=== PATIENT | male | born 1990 | race Caucasian/White ===

== ENCOUNTER 2017-05-30 08:19 | Observation (INO) | payer SELFPAY ==
[2017-05-30] MEDS ORDERED: Ondansetron 4 MG/2 ML SDV IVPUSH ONE (08:21)
[2017-05-30] MEDS ORDERED: Sodium Chloride 0.9% 1,000 ML IV ONE (08:22)
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
[2017-05-30 09:19] LABS: CHLORIDE,CL 114 mmol/L (98-110); SODIUM,NA 145 mmol/L (136-146)
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
[2017-05-30] MEDS ORDERED: Acetaminophen 325 MG Tab PO PRN (11:14)
[2017-05-30] MEDS ORDERED: Metoclopramide 10 MG/2 ML SDV IV PRN (11:14)
[2017-05-30] MEDS ORDERED: diphenhydrAMINE 50 MG/ML SDV IVPUSH PRN (11:14)
[2017-05-30] MEDS ORDERED: Morphine 2 MG/ML Syringe IVPUSH PRN (11:14)
[2017-05-30] MEDS ORDERED: Acetaminophen/HYDROcodone 325-5 MG Tab PO PRN (11:14)
[2017-05-30] MEDS ORDERED: Ondansetron 4 MG/2 ML SDV IVPUSH PRN (11:14)
[2017-05-30] MEDS ORDERED: Promethazine 25 MG/ML SDV IM PRN (11:14)
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
[2017-05-30] MEDS: Lactated Ringers 1,000 ML IV SCH ×2 (12:12→17:50)
[2017-05-30] MEDS ORDERED: LORazepam 2 MG/ML SDV IVPUSH PRN (12:24)
--- NOTE | 2017-05-30 17:54 | PCM.SN ---
- Free Text/Narrative Note: Patient was awake and alert around 3 pm this afternoon. I came to assess the patient. He was alert and oriented to person, place, time and situation. He is amnestic to the last 24 hours. I attempted to clear his neck clinically but he had midline tenderness along the lower c-spine including the right paraspinal muscles. There were no neurologic changes. In order to assess for ligamentous injury I ordered an MRI of the c-spine. The patient was concerned that he would miss a work physical and drug testing today because he was in the hospital. 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 He threatened to sign out AMA. Per the patient's request, I called the center where he was scheduled to do his physical as well as his potential employer to inform them that he was admitted to the hospital and would not be be able to make the appointment. The patient was happy with this and agreed to stay. I impressed upon the patient the importance of alcohol abstinence and we discussed TBI. He is scheduled for an MRI this evening. If the results are negative the collar can be removed and he can be discharged home. If there is any ligamentous changes I will discuss these with the on-call neurosurgeon in [place] to determine his next steps in treatment.
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
== END 2017-05-30 21:00 | disposition home or self-care (01) ==
LOC: MW.ED 08:19 → MW.MS 11:15 → MW.ED 11:22
PROVIDERS: ADMIT Surgery; ATTEND Surgery
DX: S02.81XA Fracture of other specified skull and facial bones, right side, initial encounter for closed fracture (principal); S06.0X9A Concussion with loss of consciousness of unspecified duration, initial encounter; S02.2XXA Fracture of nasal bones, initial encounter for closed fracture; F10.929 Alcohol use, unspecified with intoxication, unspecified; Y04.8XXA Assault by other bodily force, initial encounter; Y90.8 Blood alcohol level of 240 mg/100 ml or more
CPT/HCPCS: 36415; 70450; 70486; 72125; 72141; 80053; 85025; 96361; 96374; 99285; G0480; J2405; J7040; J7120; G0378

== ENCOUNTER 2018-05-19 08:15 | Emergency (ER) | payer SELFPAY ==
[2018-05-19] MEDS ORDERED: Sodium Chloride 0.9% 1,000 ML IV ONE (08:19)
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
[2018-05-19] MEDS ORDERED: Diphtheria,Pertussis(Acell),Tetanus Vaccine 0.5 ML Syringe IM ONE (08:21)
[2018-05-19] MEDS ORDERED: ceFAZolin 2 GM in Premix Bag 1 BAG IV ONE (08:26)
[2018-05-19 08:53] LABS: CHLORIDE,CL 104 mmol/L (98-107); SODIUM,NA 139 mmol/L (136-148)
[2018-05-19] MEDS ORDERED: Lactated Ringers 1,000 ML IV ONE (09:18)
[2018-05-19] MEDS ORDERED: Lidocaine 1% 50 ML MDV INJECT ONE (09:25)
[2018-05-19] MEDS ORDERED: Lidocaine 1% 50 ML MDV ONE (09:28)
--- NOTE | 2018-05-19 09:33 | CT ---
EXAMINATION: CTA of the left upper extremity, CT chest, abdomen, and pelvis with contrast. HISTORY: Pain. COMPARISON: None TECHNIQUE: Continuous CT imaging obtained through the left upper extremity, chest, abdomen, and pelvis following the administration of Isovue-370. Coronal and sagittal reconstructions obtained. FINDINGS: Left upper extremity. There is a soft tissue laceration within the region of the left bicep extending towards the axillary region, possibly involving the inferior aspect of the left pectoralis muscle laterally. This does not appear to be in close association to the brachial or axillary vasculature. Several pockets of subcutaneous air noted within the left brachial musculature. Otherwise the left upper extremity arterial study system appears normal. Thoracic aorta appears intact. Chest: Moderate motion is noted within the chest. No definite pneumothorax or pleural effusion. No focal consolidation. The heart is normal in size without a pericardial effusion. No mediastinal, hilar, or axillary lymphadenopathy. The central airways are clear. Abdomen: The liver, spleen, adrenal glands, and pancreas appear normal. Gallbladder is normal. No bulky retroperitoneal lymphadenopathy or abdominal ascites. The abdominal vasculature appears normal. The kidneys enhance and function symmetrically without evidence of obstructive uropathy. Pelvis: The large and small bowel are normal in caliber without evidence of obstruction. No focal pericolonic inflammation or stranding. There is a subcutaneous laceration within the left infraumbilical region. This does not appear to extend beyond or into the rectus musculature. No pelvic lymphadenopathy or free pelvic fluid. No free air noted. No suspicious or acute osseous abnormalities identified. IMPRESSION: 1. Soft tissue laceration involving the left brachial musculature without involvement of the left upper extremity arterial system. 2. Subcutaneous laceration within the left infraumbilical region without evidence of intraperitoneal extension. 3. No solid organ injury, free fluid, or pneumoperitoneum suggest an internal organ injury. 4. No pneumothorax.
[2018-05-19] MEDS ORDERED: Bacitracin Oint 1 GM U/D Packet ONE (10:07)
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
--- NOTE | 2018-05-19 11:05 | CR ---
EXAMINATION: Portable chest radiograph. HISTORY: Shortness of breath. FINDINGS: The trachea is midline. The cardiomediastinal silhouette is within normal limits. No pleural effusion or focal consolidation. Subtle lucency along the aortic knob, this could suggest a minimal pneumothorax. Osseous structures appear unremarkable. IMPRESSION: Possible minimal left pneumothorax otherwise no acute cardiopulmonary findings.
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
[2018-05-19] MEDS ORDERED: Bacitracin Oint 1 GM U/D Packet TOP ONE (17:56)
== END 2018-05-19 11:07 | disposition home or self-care (01) ==
LOC: MW.ED 08:15
DX: S41.132A Puncture wound without foreign body of left upper arm, initial encounter (principal); S41.131A Puncture wound without foreign body of right upper arm, initial encounter; S31.139A Puncture wound of abdominal wall without foreign body, unspecified quadrant without penetration into peritoneal cavity, initial encounter; Z23 Encounter for immunization; X99.1XXA Assault by knife, initial encounter
CPT/HCPCS: 12002; 36415; 71045; 71260; 73206; 74177; 80053; 84484; 85025; 85610; 86850; 86900; 86901; 90471; 90715; 93005; 96360; 96365; 99291; 99292; G0480; J0690; J7040; J7120